=== PATIENT | male | born 1995 | race Caucasian/White ===

== ENCOUNTER 2021-03-14 19:02 | Emergency (ER) | payer BC, OTHER ==
[~2021-03-14 19:02] MED LIST: BENTYL 20MG TAB20 MG PO; ZOFRAN ODT 4 MG4 MG PO
[2021-03-14] MEDS ORDERED: DOXYCYCLINE MO100 MG PO (20:30)
[2021-03-17 19:09] LABS: CHLAMYDIA TRACHOMATIS, NAA Positive (Negative); NEISSERIA GONORRHOEAE, NAA Negative (Negative)
== END 2021-03-14 21:35 | disposition home or self-care (01) ==
LOC: ER1 19:02
PROVIDERS: Emergency Medicine
DX: Z20.2 Contact with and (suspected) exposure to infections with a predominantly sexual mode of transmission (principal); F17.200 Nicotine dependence, unspecified, uncomplicated; Z72.51 High risk heterosexual behavior
CPT/HCPCS: 81001; 96372; 99283; J0696

== ENCOUNTER 2021-03-29 19:14 | Emergency (ER) | payer BC, OTHER ==
[~2021-03-29 19:14] MED LIST changes: +DOXYCYCLINE MO100 MG PO
[2021-03-31 18:12] LABS: CHLAMYDIA TRACHOMATIS, NAA Negative (Negative); NEISSERIA GONORRHOEAE, NAA Negative (Negative)
== END 2021-03-29 21:00 | disposition home or self-care (01) ==
LOC: ER1 19:14
PROVIDERS: Family Medicine
DX: A64 Unspecified sexually transmitted disease (principal); F17.290 Nicotine dependence, other tobacco product, uncomplicated
CPT/HCPCS: 99283

== ENCOUNTER 2021-04-05 19:03 | Emergency (ER) | payer BC, OTHER | END 2021-04-05 19:40 | disposition left against medical advice (07) | LOC: ER1 19:03 | DX: Z53.21 Procedure and treatment not carried out due to patient leaving prior to being seen by health care provider (principal) ==

== ENCOUNTER 2022-02-28 11:16 | Emergency (ER) | payer BC ==
[2022-02-28 12:00] LABS: RED BLOOD COUNT 5.12 M/UL (4.20-5.50); WHITE BLOOD COUNT 4.1 K/UL (4.5-11.0)
[2022-02-28 12:22] LABS: BUN/CREATININE RATIO 21 (0-10)
[2022-02-28] MEDS ORDERED: AMOXICILLIN875 MG PO (13:52)
== END 2022-02-28 14:05 | disposition home or self-care (01) ==
LOC: ER1 11:16
PROVIDERS: Nurse Practitioner
DX: K80.20 Calculus of gallbladder without cholecystitis without obstruction (principal); Z20.822 Contact with and (suspected) exposure to COVID-19; F17.290 Nicotine dependence, other tobacco product, uncomplicated; Z88.0 Allergy status to penicillin
CPT/HCPCS: 0240U; 70450; 71045; 80053; 80307; 81001; 82150; 83690; 85025; 96374; 99284; J2405; Q9967

== ENCOUNTER 2022-07-03 17:13 | Emergency (ER) | payer MEDICAID ==
[~2022-07-03 17:13] MED LIST changes: +AMOXICILLIN875 MG PO
[2022-07-03 17:56] LABS: HEMOGLOBIN 13.8 gm/dl (14.0-17.5); RED BLOOD COUNT 4.77 M/UL (4.20-5.50); WHITE BLOOD COUNT 6.8 K/UL (4.5-11.0)
[2022-07-03 18:18] LABS: BUN/CREATININE RATIO 18 (0-10)
== END 2022-07-03 20:20 | disposition home or self-care (01) ==
LOC: ER1 17:13
PROVIDERS: Physician Assistant
DX: R55 Syncope and collapse (principal); R42 Dizziness and giddiness; Z88.0 Allergy status to penicillin; Z20.822 Contact with and (suspected) exposure to COVID-19
CPT/HCPCS: 70450; 71045; 80053; 82550; 82553; 84484; 85025; 93005; 99284; U0002

== ENCOUNTER 2022-07-04 22:37 | Emergency (ER) | payer MEDICAID ==
[2022-07-04 23:28] LABS: HEMOGLOBIN 13.6 gm/dl (14.0-17.5); RED BLOOD COUNT 4.75 M/UL (4.20-5.50); WHITE BLOOD COUNT 6.8 K/UL (4.5-11.0)
[2022-07-04 23:47] LABS: BUN/CREATININE RATIO 16 (0-10)
[2022-07-05] MEDS ORDERED: ZOFRAN ODT 4 MG4 MG GT (03:44)
== END 2022-07-05 04:00 | disposition home or self-care (01) ==
LOC: ER1 22:37
PROVIDERS: Emergency Medicine
DX: K80.20 Calculus of gallbladder without cholecystitis without obstruction (principal); F17.290 Nicotine dependence, other tobacco product, uncomplicated
CPT/HCPCS: 80053; 81001; 83690; 85025; 96374; 96375; 99284; C9113; J2405; Q9967